=== PATIENT | female | born 1965 | race Hispanic/Latino ===

== ENCOUNTER 2016-06-07 20:15 | Emergency (ER) | payer OTHER ==
--- NOTE | 2016-06-07 21:17 | ED PDOC ---
HPI: Psych/Substance Abuse Time Seen by Provider: 06/07/16 20:20 Chief Complaint (Nursing): Psychiatric Evaluation Chief Complaint (Provider): Crisis eval History Per: Patient History/Exam Limitations: no limitations Onset/Duration Of Symptoms: Mins Current Symptoms Are (Timing): Still Present Modifying Factor(s): Alcohol Severity: Moderate () Associated Symptoms: denies: Suicidal Plan Additional History Per: Friend Additional Complaint(s): The pt is a 51yo female, presents to the ED for a crisis evaluation. Pt is accompanied by her friend at bedside - per pt, she had a few bottles of wine earlier today and called her friend. Per pt's friend, he reports the pt told him she wanted to hurt herself. Pt's friend then called 911, prompting the pt's visit to the ED. Pt currently states she is feeling sad but unsure as to why. She offers no medical complaints. Past Medical History Reviewed: Historical Data, Nursing Documentation, Vital Signs Vital Signs: Last Vital Signs Temp 98.2 F 06/07/16 20:25 Pulse 101 H 06/07/16 20:25 Resp 20 06/07/16 20:25 BP 121/87 06/07/16 20:25 Pulse Ox 97 06/07/16 20:25 - Medical History PMH: Depression Denies: Diabetes, Hepatitis, HIV, HTN, Seizures, Sexually Transmitted Disease - Surgical History Surgical History: No Surg Hx - Family History Family History: States: Unknown Family Hx - Home Medications Home Medications: Ambulatory Orders Medication Instructions Recorded Alprazolam [Xanax] 2 mg PO PRN PRN 06/07/16 - Allergies Allergies/Adverse Reactions: Allergies Allergy/AdvReac Type Severity Reaction Status Date / Time aspirin Allergy ITCHING Verified 07/17/15 21:55 ibuprofen Allergy ITCHING Verified 07/17/15 21:55 Review of Systems ROS Statement: Except As Marked, All Systems Reviewed And Found Negative Psych: Positive for: Suicidal ideation Physical Exam - Reviewed Nursing Documentation Reviewed: Yes Vital Signs Reviewed: Yes - Physical Exam Appears: Positive for: Well, Non-toxic, Uncomfortable Head Exam: Positive for: ATRAUMATIC, NORMAL INSPECTION, NORMOCEPHALIC Skin: Positive for: Normal Color Eye Exam: Positive for: Normal appearance Cardiovascular/Chest: Positive for: Regular Rate, Rhythm Respiratory: Negative for: Respiratory Distress Neurologic/Psych: Positive for: Alert, Oriented, Mood/Affect (slurred speech, alcohol on breath), Gait (unsteady gait) - Laboratory Results Result Diagrams: 06/07/16 21:16 06/07/16 21:16 - ECG O2 Sat by Pulse Oximetry: 97 (RA) Pulse Ox Interpretation: Normal Medical Decision Making Medical Decision Making: Time: 2033 Impression: Crisis evaluation Plan: -- CMP -- CBC -- Crisis evaluation --Reassess Scribe Attestation: All records were documented by Kaylene Hogan, acting as a Scribe for JENN Cheng. Provider Scribe Attestation: All medical record entries made by the Scribe were at my direction and personally dictated by me. I have reviewed the chart and agree that the record accurately reflects my personal performance of the history, physical exam, medical decision making, and the department course for this patient. I have also personally directed, reviewed, and agree with the discharge instructions and disposition. Disposition - Clinical Impression Clinical Impression: Alcohol intoxication, Suicidal ideation - Patient ED Disposition Is Patient to be Admitted: Transfer of Care (Signed out to Chris WEI pending sobriety and crisis evaluation.) - Disposition Disposition Time: 00:00 Condition: STABLE
[2016-06-07 21:30] LABS: BASO % 0.7 % (0.0-2.0); EOS # 0.2 K/uL (0.0-0.7); EOS % 3.6 % (0.0-4.0); HEMATOCRIT 42.9 % (34.0-47.0); LYMPH # 1.6 K/uL (1.0-4.3); LYMPH % 36.5 % (20.0-40.0); MEAN CELL VOLUME 98.8 fl (81.0-99.0); MEAN CORPUSCULAR HEMOGLOBIN 33.2 pg (27.0-31.0); MEAN CORPUSCULAR HGB CONC 33.7 g/dL (33.0-37.0); MEAN PLATELET VOLUME 8.2 fl (7.2-11.7); MONO # 0.3 K/uL (0.0-0.8); MONO % 7.6 % (0.0-10.0); NEUT # 2.3 K/uL (1.8-7.0); NEUT % 51.6 % (50.0-75.0); RED CELL DISTRIBUTION WIDTH 13.2 % (11.5-14.5); WHITE BLOOD COUNT 4.5 K/uL (4.8-10.8)
[2016-06-07 21:34] LABS: ALB/GLOB RATIO 1.4 (1.0-2.1); ALKALINE PHOSPHATASE 48 U/L (38-126); ALT/SGPT 44 U/L (9-52); AST/SGOT 43 U/L (14-36); BILIRUBIN,TOTAL 0.2 mg/dl (0.2-1.3); BLOOD UREA NITROGEN 12 mg/dl (7-17); CALCIUM 8.9 mg/dL (8.4-10.2); CARBON DIOXIDE 25 mmol/L (22-30); CHLORIDE 107 mmol/L (98-107); GFR AFRICAN-AMERICAN > 60; GLUCOSE,RANDOM 99 mg/dL (65-105); POTASSIUM 4.4 MMOL/L (3.6-5.0); SODIUM 145 mmol/l (132-148); TOTAL PROTEIN 7.7 G/DL (6.3-8.2)
[2016-06-07 21:46] LABS: ALCOHOL SERUM 366 mg/dl (0-10)
[2016-06-07 22:04] LABS: URINE BILIRUBIN NEGATIVE (NEGATIVE); URINE BLOOD NEGATIVE (NEGATIVE); URINE COLOR COLORLESS (YELLOW); URINE GLUCOSE (UA) NEG (Normal); URINE KETONE NEGATIVE (NEGATIVE); URINE PROTEIN NEGATIVE (NEGATIVE)
[2016-06-07 22:05] LABS: RBC URINE < 1 /hpf (0-3); URINE LEUKOCYTE ESTERASE NEG Leu/uL (Negative); URINE UROBILINOGEN 0.2-1.0 mg/dL (0.2-1.0); WBC URINE 1 /hpf (0-5)
--- NOTE | 2016-06-08 05:21 | ED PDOC ---
- Laboratory Results Result Diagrams: 06/07/16 21:16 06/07/16 21:16 - ECG O2 Sat by Pulse Oximetry: 97 (RA) - Progress ED Course And Treament: pt signed out to underwriter mortgage loan-pt with SI however is intoxicated. pt needs crisis eval. pending sobriety. Re-evaluation Time: 05:21 Condition: Re-examined (stable and well apearing. ) Medical Decision Making Medical Decision Making: pt will be evaluated by crisis at 730am due to BAL of 366 Disposition - Clinical Impression Clinical Impression: Alcohol intoxication, Suicidal ideation - POA Present On Arrival: None - Disposition Disposition: Transfer of Care Disposition Time: 06:00 Condition: STABLE Patient Signed Over To: Allen Herrera Handoff Comments: pending crisis eval Progress Note - Review of Symptoms General: No: Chills, Night Sweats, Fatigue, Malaise, Appetite, Other HEENT: No: Head Aches, Visual Changes, Eye Pain, Ear Pain, Dysphasia, Sinus Congestion, Post Nasal Drip, Sore Throat, Other Pulmonary: No: Dyspnea, Cough, Pleuritic Chest Pain, Other Cardiovascular: No: Chest Pain, Palpitations, Orthopnea, Paroxysmal Noc. Dyspnea , Edema, Light Headedness, Other Gastrointestinal: No: Nausea, Vomiting, Abdominal Pain, Diarrhea, Constipation, Melena, Hematochezia, Other Genitourinary: No: Dysuria, Frequency, Incontinence, Hematuria, Retention, Other Musculoskeletal: No: Muscle Pain, Joint Pain, Other Neurological: No: Weakness, Numbness, Incoordination, Change in speech, Confusion, Seizures, Other
--- NOTE | 2016-06-08 06:05 | ED PDOC ---
- Laboratory Results Result Diagrams: 06/07/16 21:16 06/07/16 21:16 - ECG O2 Sat by Pulse Oximetry: 97 (RA) Medical Decision Making Medical Decision Makin:00 Patient is signed out to me by Therese Perez pending clinical sobriety crisis evaluation, and final disposition. Scribe Attestation: Documented by Tami Chanel, acting as a scribe for Allen Herrera MD. Provider Scribe Attestation: All medical record entries made by the Scribe were at my direction and personally dictated by me. I have reviewed the chart and agree that the record accurately reflects my personal performance of the history, physical exam, medical decision making, and the department course for this patient. I have also personally directed, reviewed, and agree with the discharge instructions and disposition. Disposition - Clinical Impression Clinical Impression: Alcohol intoxication, Suicidal ideation - POA Present On Arrival: None - Disposition Disposition: Transfer of Care Disposition Time: 07:00 Condition: FAIR Patient Signed Over To: Mely Holland Handoff Comments: pending sobriety and crisis eval.
--- NOTE | 2016-06-08 07:19 | ED PDOC ---
- Laboratory Results Result Diagrams: 06/07/16 21:16 06/07/16 21:16 - ECG O2 Sat by Pulse Oximetry: 97 (RA) - Progress ED Course And Treament: Pt AAOX3, steady gait. Re-evaluation Time: 08:47 Disposition - Clinical Impression Clinical Impression: Alcohol-induced mood disorder - POA Present On Arrival: None - Disposition Disposition: Routine/Home Disposition Time: 08:47 Condition: STABLE Additional Instructions: ALCOHOL DETOX ADVISED. Instructions: Alcohol Intoxication (ED) Addendum Addendum: 06/08/16 07:[address] Pt signed out by [address] Herrera pending Crisis evaluation.
[2016-06-08 08:01] VITALS: BP 114/76; PULSE 95; RESP 18; TEMP 98.9
[2016-06-08 08:47] VITALS: O2SAT 97
== END 2016-06-08 08:55 | disposition home or self-care (01) ==
LOC: H.ER 20:15
DX: F10.129 Alcohol abuse with intoxication, unspecified (principal); Y90.8 Blood alcohol level of 240 mg/100 ml or more; R45.851 Suicidal ideations; F32.9 Major depressive disorder, single episode, unspecified

== ENCOUNTER 2016-11-04 22:22 | Emergency (ER) | payer OTHER ==
[2016-11-04 22:31] VITALS: BP 111/82; PULSE 104; RESP 16; TEMP 98.2; O2SAT 100
--- NOTE | 2016-11-04 23:25 | ED PDOC ---
HPI: Psych/Substance Abuse Time Seen by Provider: 11/04/16 22:35 Chief Complaint (Nursing): Psychiatric Evaluation Chief Complaint (Provider): crisis eval History Per: Patient, EMS History/Exam Limitations: intoxication Additional History Per: Patient, EMS Additional Complaint(s): 51 y/o female brought in by EMS for crisis eval. As per EMS, patient expressed suicidal ideations to a neighbor, who called 911. Patient states she drink 5 glasses of wine tonight. Denies suicidal/homicidal ideations, or other medical compliant. Compliant with psych meds. Past Medical History Reviewed: Historical Data, Nursing Documentation, Vital Signs Vital Signs: Last Vital Signs Temp 98.2 F 11/04/16 22:26 Pulse 104 H 11/04/16 22:26 Resp 16 11/04/16 22:26 BP 111/82 11/04/16 22:26 Pulse Ox 100 11/04/16 22:26 - Medical History PMH: Depression Denies: Diabetes, Hepatitis, HIV, HTN, Seizures, Sexually Transmitted Disease - Surgical History Surgical History: No Surg Hx - Family History Family History: States: Unknown Family Hx - Home Medications Home Medications: Ambulatory Orders Medication Instructions Recorded Alprazolam [Xanax] 2 mg PO PRN PRN 06/07/16 - Allergies Allergies/Adverse Reactions: Allergies Allergy/AdvReac Type Severity Reaction Status Date / Time aspirin Allergy ITCHING Verified 07/17/15 21:55 ibuprofen Allergy ITCHING Verified 07/17/15 21:55 Review of Systems ROS Statement: Except As Marked, All Systems Reviewed And Found Negative Psych: Positive for: Other (etoh) Physical Exam - Reviewed Nursing Documentation Reviewed: Yes Vital Signs Reviewed: Yes - Physical Exam Appears: Positive for: Well, Non-toxic, No Acute Distress Head Exam: Positive for: ATRAUMATIC, NORMAL INSPECTION, NORMOCEPHALIC Skin: Positive for: Normal Color Eye Exam: Positive for: Normal appearance ENT: Positive for: Normal ENT Inspection Cardiovascular/Chest: Positive for: Regular Rate, Rhythm Respiratory: Positive for: Normal Breath Sounds Gastrointestinal/Abdominal: Positive for: Normal Exam Back: Positive for: Normal Inspection Extremity: Positive for: Normal ROM Neurologic/Psych: Positive for: Alert, Oriented, Other (slurred speech, +AOB) - Laboratory Results Result Diagrams: 11/04/16 23:50 11/04/16 23:50 - ECG O2 Sat by Pulse Oximetry: 100 - Progress ED Course And Treament: labs, urine, crisis eval ED OBSERVATION Discharge: Yes Date of observation admission: 11/05/16 Time of observation admission: 01:00 - Observation admission statement Patient is being placed in observation because:: acute alcohol intoxication - Goals of Observation Goals of observation are:: observe for clinical sobriety, obtain crisis eval - Progress Note Progress Note: 11/05/16 1:00 Patient sleeping 2:30 patient sleeping 4:00 patient awake, alert, oriented x3; ambulating to bathroom with steady gait 5:15 Patient evaluated by laceworker; does not meet criteria for admission at this time as per Dr. Argueta Follow up outpatient Return to ED for worsening/concerning symptoms. 11/05/16 05:26 Disposition - Clinical Impression Clinical Impression: Alcohol-induced mood disorder - Patient ED Disposition Is Patient to be Admitted: No Counseled Patient/Family Regarding: Studies Performed, Diagnosis, Need For Followup - Disposition Disposition: Routine/Home Disposition Time: 05:21 Condition: STABLE Instructions: Alcohol Intoxication (ED)
[2016-11-05 00:04] LABS: BASO % 0.4 % (0.0-2.0); EOS % 0.5 % (0.0-4.0); HEMATOCRIT 41.1 % (34.0-47.0); MEAN CELL VOLUME 97.6 fl (81.0-99.0); MEAN CORPUSCULAR HEMOGLOBIN 32.9 pg (27.0-31.0); MEAN CORPUSCULAR HGB CONC 33.7 g/dL (33.0-37.0); MEAN PLATELET VOLUME 8.6 fl (7.2-11.7); MONO # 0.3 K/uL (0.0-0.8); MONO % 5.2 % (0.0-10.0); NEUT # 3.1 K/uL (1.8-7.0); NEUT % 56.9 % (50.0-75.0); NRBC % 0.3 % (0.0-0.0); RED CELL DISTRIBUTION WIDTH 13.3 % (11.5-14.5); WHITE BLOOD COUNT 5.5 K/uL (4.8-10.8)
[2016-11-05 00:15] LABS: ALB/GLOB RATIO 1.7 (1.0-2.1); ALKALINE PHOSPHATASE 50 U/L (38-126); ALT/SGPT 42 U/L (9-52); AST/SGOT 26 U/L (14-36); BILIRUBIN,TOTAL 0.3 mg/dl (0.2-1.3); BLOOD UREA NITROGEN 8 mg/dl (7-17); CALCIUM 8.6 mg/dL (8.4-10.2); CARBON DIOXIDE 20 mmol/L (22-30); CHLORIDE 98 mmol/L (98-107); GFR AFRICAN-AMERICAN > 60; GLUCOSE,RANDOM 95 mg/dL (65-105); POTASSIUM 3.9 MMOL/L (3.6-5.0); SODIUM 137 mmol/l (132-148); TOTAL PROTEIN 7.2 G/DL (6.3-8.2)
[2016-11-05 00:38] LABS: ALCOHOL SERUM 326 mg/dl (0-10)
[2016-11-05 01:47] LABS: RBC URINE < 1 /hpf (0-3); URINE BILIRUBIN NEGATIVE (NEGATIVE); URINE BLOOD NEGATIVE (NEGATIVE); URINE COLOR COLORLESS (YELLOW); URINE GLUCOSE (UA) NEG (Normal); URINE KETONE NEGATIVE (NEGATIVE); URINE LEUKOCYTE ESTERASE NEG Leu/uL (Negative); URINE PROTEIN NEGATIVE (NEGATIVE); URINE UROBILINOGEN 0.2-1.0 mg/dL (0.2-1.0); WBC URINE < 1 /hpf (0-5)
== END 2016-11-05 05:46 | disposition home or self-care (01) ==
LOC: H.ER 22:22
DX: F10.94 Alcohol use, unspecified with alcohol-induced mood disorder (principal); F32.9 Major depressive disorder, single episode, unspecified; R45.851 Suicidal ideations

== ENCOUNTER 2016-11-05 19:47 | Observation (INO) | payer OTHER ==
[2016-11-05 19:55] VITALS: O2SAT 99
--- NOTE | 2016-11-05 21:35 | ED PDOC ---
HPI: Psych/Substance Abuse Time Seen by Provider: 11/05/16 19:57 Chief Complaint (Nursing): Psychiatric Evaluation Chief Complaint (Provider): Psychiatric Evaluation History Per: Patient History/Exam Limitations: no limitations Onset/Duration Of Symptoms: Mins (prior to arrival) Current Symptoms Are (Timing): Still Present Additional Complaint(s): Priya Wheatley is a 51 year old female who presents to the emergency department for a psychiatric evaluation associated with depression, suicidal ideation without plan and bilateral feet pain status post twisting her ankle as she fell prior to arrival. Denied head injury or loss of consciousness. Patient admitted to drinking 2 bottles of wine a day. PMD: none provided Past Medical History Reviewed: Historical Data, Nursing Documentation, Vital Signs Vital Signs: Last Vital Signs Temp 99 F 11/05/16 19:50 Pulse 118 H 11/05/16 19:50 Resp 20 11/05/16 19:50 BP 127/92 H 11/05/16 19:50 Pulse Ox 99 11/05/16 19:50 - Medical History PMH: Depression Denies: Diabetes, Hepatitis, HIV, HTN, Seizures, Sexually Transmitted Disease - Family History Family History: States: Unknown Family Hx - Social History Current smoker - smoking cessation education provided: No Ex-Smoker (has not smoked in the last 12 months): No Alcohol: > 2 Drinks/Day Drugs: Denies - Home Medications Home Medications: Ambulatory Orders Medication Instructions Recorded Alprazolam [Xanax] 2 mg PO PRN PRN 06/07/16 - Allergies Allergies/Adverse Reactions: Allergies Allergy/AdvReac Type Severity Reaction Status Date / Time aspirin Allergy ITCHING Verified 07/17/15 21:55 Review of Systems ROS Statement: Except As Marked, All Systems Reviewed And Found Negative Musculoskeletal: Positive for: Foot Pain (bilateral) Neurological: Negative for: Other (head injury or LOC) Psych: Positive for: Depression, Suicidal ideation (without plan) Physical Exam - Reviewed Nursing Documentation Reviewed: Yes Vital Signs Reviewed: Yes - Physical Exam Appears: Positive for: Well, Non-toxic, No Acute Distress Head Exam: Positive for: ATRAUMATIC, NORMAL INSPECTION, NORMOCEPHALIC Cardiovascular/Chest: Positive for: Regular Rate, Rhythm. Negative for: Chest Non Tender Respiratory: Positive for: Normal Breath Sounds, Accessory Muscle Use. Negative for: Decreased Breath Sounds, Respiratory Distress Pulses-Dorsalis Pedis (L): 2+ Pulses-Dorsalis Pedis (R): 2+ Extremity: Positive for: Normal ROM, Tenderness (medial and lateral malleolus). Negative for: Pedal Edema, Calf Tenderness, Deformity Neurologic/Psych: Positive for: Alert, Oriented, Mood/Affect (tearful/depressed) - Laboratory Results Result Diagrams: 11/05/16 21:45 11/05/16 21:53 - ECG O2 Sat by Pulse Oximetry: 99 (RA) Pulse Ox Interpretation: Normal Medical Decision Making Medical Decision Making: Initial Impression: Chronic alcohol abuse; suicidal ideation Initial Plan: * Acetaminophen * Alcohol serum * BMP * Drug screen, urine * Salicylate * Crisis evaluation * CBC * Motrin 600mg PO * 1:1 OBS * Admit to hospital 2018 * Xray ankle (left) * Urinalysis Time: 2157 --Xray ankle FINDINGS: BONES/JOINTS: Bony structures appear mildly osteopenic. No acute fractures are seen. No evidence of acute dislocation. Ankle mortise is intact. SOFT TISSUES: 4 mm ovoid, smoothly marginated calcification is seen in the distal calf soft tissues anteriorly, most likely a phlebolith. IMPRESSION: - No acute fracture or dislocation seen. - See above for remaining findings. 0145 Patient cleared by Crisis with diagnosis of alcohol abuse disorder by Dr. Estrada. Patient is medically stable, and requires no further treatment in the ED at this time. Patient will be discharged home. Scribe Attestation: Documented by Rain Mcdonald, acting as a scribe for Deniz Roy MD. Provider Scribe Attestation: All medical record entries made by the Scribe were at my direction and personally dictated by me. I have reviewed the chart and agree that the record accurately reflects my personal performance of the history, physical exam, medical decision making, and the department course for this patient. I have also personally directed, reviewed, and agree with the discharge instructions and disposition. ED OBSERVATION Date of observation admission: 11/05/16 Time of observation admission: 20:18 - Observation admission statement Patient is being placed in observation because:: depression; suicidal ideation; ETOH abuse - Goals of Observation Goals of observation are:: crisis evaluation; clinical sobriety - Progress Note Progress Note: Time: 2147 --Patient is resting comfortably with stable vital signs. 11/05/16 23:25 --Patient is resting comfortably with stable vital signs. 11/06/16 00:58 --Patient is resting comfortably, vitals are stable. Disposition - Clinical Impression Clinical Impression: Alcohol-induced mood disorder - Disposition Disposition: Routine/Home Disposition Time: 01:45 Condition: STABLE
[2016-11-05 21:54] LABS: BASO % 0.4 % (0.0-2.0); EOS % 0.2 % (0.0-4.0); HEMATOCRIT 48.8 % (34.0-47.0); LYMPH # 1.9 K/uL (1.0-4.3); LYMPH % 25.4 % (20.0-40.0); MEAN CELL VOLUME 97.9 fl (81.0-99.0); MEAN CORPUSCULAR HEMOGLOBIN 32.8 pg (27.0-31.0); MEAN CORPUSCULAR HGB CONC 33.5 g/dL (33.0-37.0); MEAN PLATELET VOLUME 8.7 fl (7.2-11.7); MONO # 0.2 K/uL (0.0-0.8); MONO % 3.2 % (0.0-10.0); NEUT # 5.4 K/uL (1.8-7.0); NEUT % 70.8 % (50.0-75.0); NRBC % 0.5 % (0.0-0.0); RED CELL DISTRIBUTION WIDTH 13.9 % (11.5-14.5); WHITE BLOOD COUNT 7.6 K/uL (4.8-10.8)
--- NOTE | 2016-11-05 21:59 | RAD ---
EXAM: XR Left Ankle Complete, 3 or More Views EXAM DATE/TIME: 11/05/2016 8:17 PM CLINICAL HISTORY: 51 years old, female; Pain; Ankle; Left; Additional info: S/P fall TECHNIQUE: Frontal, lateral and oblique views of the left ankle. COMPARISON: No relevant prior studies available. FINDINGS: BONES/JOINTS: Bony structures appear mildly osteopenic. No acute fractures are seen. No evidence of acute dislocation. Ankle mortise is intact. SOFT TISSUES: 4 mm ovoid, smoothly marginated calcification is seen in the distal calf soft tissues anteriorly, most likely a phlebolith. IMPRESSION: - No acute fracture or dislocation seen. - See above for remaining findings.
[2016-11-05 22:09] LABS: BLOOD UREA NITROGEN 6 mg/dl (7-17); CALCIUM 9.3 mg/dL (8.4-10.2); CARBON DIOXIDE 18 mmol/L (22-30); CHLORIDE 102 mmol/L (98-107); GFR AFRICAN-AMERICAN > 60; GLUCOSE,RANDOM 84 mg/dL (65-105); POTASSIUM 4.1 MMOL/L (3.6-5.0); SODIUM 144 mmol/l (132-148)
[2016-11-05 22:41] LABS: ALCOHOL SERUM 384 mg/dl (0-10)
[2016-11-05 23:05] LABS: RBC URINE 2 /hpf (0-3); URINE BACTERIA RARE (<OCC); URINE BILIRUBIN NEGATIVE (NEGATIVE); URINE BLOOD NEGATIVE (NEGATIVE); URINE COLOR STRAW (YELLOW); URINE GLUCOSE (UA) NEG (Normal); URINE KETONE TRACE mg/dL (NEGATIVE); URINE LEUKOCYTE ESTERASE MOD Leu/uL (Negative); URINE PROTEIN NEGATIVE (NEGATIVE); URINE UROBILINOGEN 0.2-1.0 mg/dL (0.2-1.0); WBC URINE 5 /hpf (0-5)
[2016-11-06 02:55] VITALS: BP 127/92; PULSE 118; RESP 20; TEMP 99
== END 2016-11-06 02:30 | disposition home or self-care (01) ==
LOC: H.ER 19:47 → H.EROBSV 20:18
PROVIDERS: ADMIT Emergency Medicine; ATTEND Emergency Medicine
DX: F10.14 Alcohol abuse with alcohol-induced mood disorder (principal); Y90.8 Blood alcohol level of 240 mg/100 ml or more; R45.851 Suicidal ideations; F32.9 Major depressive disorder, single episode, unspecified; M79.672 Pain in left foot; M79.671 Pain in right foot; Z88.6 Allergy status to analgesic agent
CPT/HCPCS: 36415; 73610; 80048; 80320; 80324; 80329; 80345; 80346; 80349; 80353; 80358; 80361; 81003; 83992; 85025; 99283; G0378

== ENCOUNTER 2017-02-11 20:37 | Emergency (ER) | payer OTHER ==
--- NOTE | 2017-02-11 21:36 | ED PDOC ---
HPI: Psych/Substance Abuse Time Seen by Provider: 02/11/17 21:06 Chief Complaint (Nursing): Psychiatric Evaluation Chief Complaint (Provider): alcohol intoxication History Per: Patient History/Exam Limitations: intoxication Additional History Per: Patient Additional Complaint(s): 51 y/o female brought in by EMS for acute alcohol intoxication and suicidal ideations. As per patient, states she drank a bottle of wine tonight and took two of her prescribed 1mg Clonazepam tablets; denies suicidal/homicidal ideations at present, denies taking any other drugs. Past Medical History Reviewed: Historical Data, Nursing Documentation, Vital Signs Vital Signs: Last Vital Signs Temp 98.0 F 02/11/17 20:41 Pulse 134 H 02/11/17 20:41 Resp 16 02/11/17 20:41 BP 121/80 02/11/17 20:41 Pulse Ox 100 02/11/17 20:41 - Medical History PMH: Depression Denies: Diabetes, Hepatitis, HIV, HTN, Seizures, Sexually Transmitted Disease - Surgical History Surgical History: No Surg Hx - Family History Family History: States: Unknown Family Hx - Home Medications Home Medications: Ambulatory Orders Medication Instructions Recorded Alprazolam [Xanax] 2 mg PO PRN PRN 06/07/16 - Allergies Allergies/Adverse Reactions: Allergies Allergy/AdvReac Type Severity Reaction Status Date / Time aspirin Allergy ITCHING Verified 02/11/17 20:41 Review of Systems ROS Statement: Except As Marked, All Systems Reviewed And Found Negative Psych: Positive for: Depression Physical Exam - Reviewed Nursing Documentation Reviewed: Yes Vital Signs Reviewed: Yes - Physical Exam Appears: Positive for: Well, Non-toxic, Uncomfortable (tearful) Head Exam: Positive for: ATRAUMATIC, NORMAL INSPECTION, NORMOCEPHALIC Skin: Positive for: Normal Color Eye Exam: Positive for: Normal appearance, EOMI, PERRL ENT: Positive for: Normal ENT Inspection Cardiovascular/Chest: Positive for: Regular Rate, Rhythm Respiratory: Positive for: Normal Breath Sounds Gastrointestinal/Abdominal: Positive for: Normal Exam Back: Positive for: Normal Inspection Extremity: Positive for: Normal ROM Neurologic/Psych: Positive for: Alert, Oriented - Laboratory Results Result Diagrams: 02/11/17 22:11 02/11/17 22:11 - ECG ECG: Positive for: Viewed By Me (reviewed by ED attending) ECG Rhythm: Positive for: Sinus Tachycardia O2 Sat by Pulse Oximetry: 100 - Progress ED Course And Treament: labs, urine, 1:1, crisis eval Patient attempting to get out of bed, extremely unsteady on feet. Escorted back to bed but again attempting to get up. Patient failing to comply with alternative measures offered; medicated for acute agitation/safety 23:30 Patient sleeping; no distress 02/12/17 1:00 Patient sleeping; no distress 2:30 Patient sleeping; no distress 4:00 Patient awake, alert, oriented x3. Ambulating steady gati. Patient evaluated by hothouse worker; does not meet criteria for admission at this time as per Dr. Estrada. PAtient stable for discharge. Return precautions given. Disposition - Clinical Impression Clinical Impression: Alcohol use disorder - Patient ED Disposition Is Patient to be Admitted: No Counseled Patient/Family Regarding: Studies Performed, Diagnosis, Need For Followup - Disposition Disposition: Routine/Home Disposition Time: 04:49 Condition: STABLE Instructions: Abuse of Alcohol (ED), Alcohol Use Disorder (ED)
[2017-02-11 22:17] LABS: BASO % 0.6 % (0.0-2.0); EOS # 0.1 K/uL (0.0-0.7); EOS % 0.9 % (0.0-4.0); HEMOGLOBIN 14.9 g/dL (12.0-16.0); LYMPH # 2.2 K/uL (1.0-4.3); LYMPH % 40.1 % (20.0-40.0); MEAN CORPUSCULAR HEMOGLOBIN 31.4 pg (27.0-31.0); MEAN CORPUSCULAR HGB CONC 33.1 g/dL (33.0-37.0); MEAN PLATELET VOLUME 7.9 fl (7.2-11.7); MONO # 0.3 K/uL (0.0-0.8); MONO % 5.4 % (0.0-10.0); NRBC % 0.1 % (0.0-0.0); RBC 4.75 Mil/uL (3.80-5.20); RED CELL DISTRIBUTION WIDTH 12.3 % (11.5-14.5); WHITE BLOOD COUNT 5.6 K/uL (4.8-10.8)
[2017-02-11 22:32] LABS: ACETAMINOPHEN < 10.0 ug/ml (10.0-30.0); SALICYLATE < 1.0 mg/dl
[2017-02-11 22:33] LABS: ALB/GLOB RATIO 1.4 (1.0-2.1); ALBUMIN 4.4 g/dL (3.5-5.0); ALT/SGPT 57 U/L (9-52); AST/SGOT 32 U/L (14-36); BLOOD UREA NITROGEN 5 mg/dl (7-17); GFR AFRICAN-AMERICAN > 60; GFR NON-AFRICAN AMERICAN > 60
[2017-02-12 02:41] LABS: SQUAMOUS EPITHIAL 1 /hpf (0-5); URINE BACTERIA RARE (<OCC); URINE BILIRUBIN NEGATIVE (NEGATIVE); URINE BLOOD SMALL (NEGATIVE); URINE CLARITY CLEAR (Clear); URINE COLOR STRAW (YELLOW); URINE GLUCOSE (UA) NEG (Normal); URINE LEUKOCYTE ESTERASE TRACE Leu/uL (Negative); URINE NITRATE NEGATIVE (NEGATIVE); URINE PROTEIN NEGATIVE (NEGATIVE); URINE UROBILINOGEN 0.2-1.0 mg/dL (0.2-1.0)
[2017-02-12 02:49] LABS: BARBITURATES, UR NEGATIVE (NEGATIVE); OPIATES, UR NEGATIVE (NEGATIVE); PHENCYCLIDINE, UR NEGATIVE (NEGATIVE)
[2017-02-12 02:50] LABS: BENZODIAZEPINES, UR POSITIVE (NEGATIVE)
[2017-02-12 04:41] VITALS: BP 101/64; RESP 18; TEMP 98.1
[2017-02-12 04:47] VITALS: PULSE 101
[2017-02-12 04:49] VITALS: O2SAT 100
--- NOTE | 2017-02-12 10:45 | CARD ---
APPROVED REPORT EKG Measurement Heart [id number] <Conclusion> Sinus tachycardia Otherwise normal ECG
== END 2017-02-12 05:13 | disposition home or self-care (01) ==
LOC: H.ER 20:37
DX: F10.129 Alcohol abuse with intoxication, unspecified (principal); R45.851 Suicidal ideations; F32.9 Major depressive disorder, single episode, unspecified
CPT/HCPCS: 80053; 80320; 80324; 80329; 80345; 80346; 80349; 80353; 80358; 80361; 81003; 83992; 85025; 93005; 96372; 99283; J1630

== ENCOUNTER 2017-02-24 20:23 | Emergency (ER) | payer OTHER ==
[2017-02-24 20:52] VITALS: TEMP 98.7; O2SAT 95
--- NOTE | 2017-02-24 22:27 | ED PDOC ---
HPI: Psych/Substance Abuse Time Seen by Provider: 02/24/17 21:48 Chief Complaint (Nursing): Alcohol Ingestion Chief Complaint (Provider): alcohol intoxication History Per: Patient History/Exam Limitations: no limitations Additional Complaint(s): 51 y/o female brought in by EMS for acute alcohol intoxication. Patient states she drank two bottles of wine tonight and feels that was "too much" for her. Denies headache, dizziness, nausea/vomiting, chest pain, abdominal pain, suicidal/homicidal ideations. Patient requesting water Past Medical History Reviewed: Historical Data, Nursing Documentation, Vital Signs Vital Signs: Last Vital Signs Temp 98.7 F 02/24/17 20:48 Pulse 126 H 02/24/17 20:48 Resp 18 02/24/17 20:48 BP 122/89 02/24/17 20:48 Pulse Ox 95 02/24/17 20:48 - Medical History PMH: Depression Denies: Diabetes, Hepatitis, HIV, HTN, Seizures, Sexually Transmitted Disease - Surgical History Surgical History: No Surg Hx - Family History Family History: States: Unknown Family Hx - Home Medications Home Medications: Ambulatory Orders Medication Instructions Recorded Alprazolam [Xanax] 2 mg PO PRN PRN 06/07/16 - Allergies Allergies/Adverse Reactions: Allergies Allergy/AdvReac Type Severity Reaction Status Date / Time aspirin Allergy RASH Verified 02/24/17 20:48 Review of Systems ROS Statement: Except As Marked, All Systems Reviewed And Found Negative Physical Exam - Reviewed Nursing Documentation Reviewed: Yes Vital Signs Reviewed: Yes - Physical Exam Appears: Positive for: Well, Non-toxic, No Acute Distress Head Exam: Positive for: ATRAUMATIC, NORMAL INSPECTION, NORMOCEPHALIC Skin: Positive for: Normal Color Eye Exam: Positive for: Normal appearance ENT: Positive for: Normal ENT Inspection Cardiovascular/Chest: Positive for: Regular Rate, Rhythm Respiratory: Positive for: Normal Breath Sounds Gastrointestinal/Abdominal: Positive for: Normal Exam Back: Positive for: Normal Inspection Extremity: Positive for: Normal ROM Neurologic/Psych: Positive for: Alert, Oriented, Other (slurred speech, +AOB, gait unsteady) - ECG O2 Sat by Pulse Oximetry: 95 - Progress ED Course And Treament: alcohol, accucheck 02/25/17 00:00 Patient awake, alert, oriented x3. Ambulating steady gait. Stable for discharge Disposition - Clinical Impression Clinical Impression: Alcohol intoxication, Alcohol abuse - Patient ED Disposition Is Patient to be Admitted: No Counseled Patient/Family Regarding: Studies Performed, Diagnosis, Need For Followup - Disposition Disposition: Routine/Home Disposition Time: 23:51 Condition: IMPROVED Instructions: Abuse of Alcohol (ED)
[2017-02-24 23:56] VITALS: BP 120/78; PULSE 100; RESP 20
== END 2017-02-25 00:07 | disposition home or self-care (01) ==
LOC: H.ER 20:23
DX: F10.129 Alcohol abuse with intoxication, unspecified (principal); Z86.59 Personal history of other mental and behavioral disorders; Y90.8 Blood alcohol level of 240 mg/100 ml or more

== ENCOUNTER 2017-06-01 10:48 | Emergency (ER) | payer BC, OTHER ==
[2017-06-01 11:10] VITALS: BMI 23.0
[2017-06-01 11:12] VITALS: BP 128/63; PULSE 109; RESP 20; TEMP 100.2; O2SAT 99
[2017-06-01] MEDS ORDERED: Sodium Chloride 0.9% 1,000 ML IV STA (11:45)
--- NOTE | 2017-06-01 11:49 | ED PDOC ---
HPI: Abdomen Time Seen by Provider: 06/01/17 11:38 Chief Complaint (Nursing): GI Problem History Per: Patient Onset/Duration Of Symptoms: Days (3) Current Symptoms Are (Timing): Still Present Severity: Moderate Location Of Pain/Discomfort: Epigastric Quality Of Discomfort: Unable To Describe Associated Symptoms: Nausea, Vomiting, Diarrhea Additional Complaint(s): Mild epigastric pain assoc with NVD and low grade fever after eating at picnic Sat. Unable to tolerate PO. Low grade fever. Denies blood in stools or vomitus. Past Medical History Vital Signs: Last Vital Signs Temp 100.2 F H 06/01/17 11:10 Pulse 109 H 06/01/17 11:10 Resp 20 06/01/17 11:10 BP 128/63 06/01/17 11:10 Pulse Ox 99 06/01/17 11:50 - Medical History PMH: Anxiety, Depression Denies: Diabetes, Hepatitis, HIV, HTN, Seizures, Sexually Transmitted Disease - Family History Family History: States: Unknown Family Hx - Home Medications Home Medications: Ambulatory Orders Medication Instructions Recorded Cetirizine HCl [Allergy Relief] 10 mg PO HS 06/01/17 Diclofenac Sodium [Diclofenac 100 mg PO DAILY PRN 06/01/17 Sodium ER] Disulfiram [Disulfiram] 500 mg PO DAILY 06/01/17 Famotidine [Pepcid] 20 mg PO Q12 #20 tab 06/01/17 Levomefolate/Algal Oil 1 cap PO DAILY 06/01/17 [Deplin-Algal Oil 15 mg Capsule] Lurasidone HCl [Latuda] 80 mg PO HS 06/01/17 Naltrexone [Revia] 50 mg PO DAILY 06/01/17 Olopatadine HCl [Patanase] 2 spray LIZZ BID PRN 06/01/17 Omeprazole [Omeprazole] 40 mg PO BID 06/01/17 Ondansetron [Zofran] 4 mg PO Q8H #10 tab 06/01/17 Venlafaxine [Effexor XR] 150 mg PO DAILY 06/01/17 buPROPion XL [Wellbutrin XL] 150 mg PO DAILY 06/01/17 busPIRone [Buspar] 7.5 mg PO Q12 06/01/17 traZODone [Desyrel] 100 mg PO HS 06/01/17 - Allergies Allergies/Adverse Reactions: Allergies Allergy/AdvReac Type Severity Reaction Status Date / Time aspirin Allergy RASH Verified 02/24/17 20:48 ibuprofen [From Advil] Allergy RASH Verified 06/01/17 11:12 Review of Systems ROS Statement: Except As Marked, All Systems Reviewed And Found Negative Constitutional: Positive for: Fever Gastrointestinal: Positive for: Nausea, Vomiting, Abdominal Pain, Diarrhea. Negative for: Melena, Hematochezia, Hematemesis Genitourinary Female: Negative for: Dysuria, Frequency Physical Exam - Reviewed Nursing Documentation Reviewed: Yes Vital Signs Reviewed: Yes - Physical Exam Appears: Positive for: Non-toxic, No Acute Distress Head Exam: Positive for: ATRAUMATIC, NORMAL INSPECTION, NORMOCEPHALIC Skin: Positive for: Normal Color, Warm, DRY Eye Exam: Positive for: EOMI, Normal appearance, PERRL ENT: Positive for: Other (Mucous membranes dry) Neck: Positive for: Normal, Painless ROM Cardiovascular/Chest: Positive for: Regular Rate, Rhythm Respiratory: Positive for: CNT, Normal Breath Sounds Gastrointestinal/Abdominal: Positive for: Bowel Sounds, Soft, Tenderness (Mild epigastric tenderness) Back: Positive for: Normal Inspection Extremity: Positive for: Normal ROM Neurologic/Psych: Positive for: Alert, Oriented - Laboratory Results Result Diagrams: 06/01/17 12:17 06/01/17 12:17 - ECG O2 Sat by Pulse Oximetry: 99 - Progress Re-evaluation Time: 16:06 Condition: Improved (Tolerated PO) Disposition - Clinical Impression Clinical Impression: Gastroenteritis - Patient ED Disposition Is Patient to be Admitted: No Counseled Patient/Family Regarding: Studies Performed, Diagnosis, Need For Followup, Rx Given - Disposition Referrals: [facility] [Outside] Disposition: Routine/Home Disposition Time: 16:06 Condition: FAIR Prescriptions: Famotidine [Pepcid] 20 mg PO Q12 #20 tab Ondansetron [Zofran] 4 mg PO Q8H #10 tab Instructions: Viral Gastroenteritis Forms: [employer] (Bulgarian)
[2017-06-01 12:28] LABS: BASO % 0.1 % (0.0-2.0); HEMOGLOBIN 14.6 g/dL (12.0-16.0); LYMPH # 0.4 K/uL (1.0-4.3); LYMPH % 7.1 % (20.0-40.0); MEAN CORPUSCULAR HEMOGLOBIN 31.8 pg (27.0-31.0); MEAN CORPUSCULAR HGB CONC 34.5 g/dL (33.0-37.0); MEAN PLATELET VOLUME 8.4 fl (7.2-11.7); MONO # 0.3 K/uL (0.0-0.8); MONO % 5.1 % (0.0-10.0); NEUT # 4.6 K/uL (1.8-7.0); NEUT % 87.7 % (50.0-75.0); NRBC % 0.1 % (0.0-0.0); PLATELET COUNT 214 K/uL (130-400); RBC 4.58 Mil/uL (3.80-5.20); RED CELL DISTRIBUTION WIDTH 12.6 % (11.5-14.5); WHITE BLOOD COUNT 5.2 K/uL (4.8-10.8)
[2017-06-01 12:35] LABS: ALB/GLOB RATIO 1.4 (1.0-2.1); ALBUMIN 4.2 g/dL (3.5-5.0); ALT/SGPT 61 U/L (9-52); AST/SGOT 27 U/L (14-36); BLOOD UREA NITROGEN 5 mg/dl (7-17); CALCIUM 9.3 mg/dL (8.4-10.2); GFR AFRICAN-AMERICAN > 60; GFR NON-AFRICAN AMERICAN > 60
[2017-06-01 13:47] LABS: BANDS 2 % (0-2); EOSINOPHIL 1 % (0-7); LYMPHOCYTE 9 % (20-50); MONOCYTE 6 % (0-10); NEUTROPHIL 82 % (42-75); TOTAL CELLS COUNTED 100
[2017-06-01 13:48] LABS: PLATELET ESTIMATE NORMAL (NORMAL)
== END 2017-06-01 16:44 | disposition home or self-care (01) ==
LOC: H.ER 10:48
DX: K52.9 Noninfective gastroenteritis and colitis, unspecified (principal); F32.9 Major depressive disorder, single episode, unspecified; F41.9 Anxiety disorder, unspecified; Z88.6 Allergy status to analgesic agent
CPT/HCPCS: 80053; 81025; 85025; 96374; 99283; J7040